=== PATIENT | male | born 1985 | race Caucasian/White ===

== ENCOUNTER 2017-08-19 14:26 | Emergency (ER) | payer SELFPAY ==
[2017-08-19 15:48] VITALS: BP 125/74; PULSE 80; RESP 18; TEMP 37.2; O2SAT 99; BMI 21.7
[2017-08-19 16:12] LABS: UTC Influenza A Antigen Negative (Negative); UTC Influenza B Antigen Positive (Negative)
--- NOTE | 2017-08-19 17:10 | HMH.EDUTC ---
[facility] [place]: Flu Disposition: Home, Self-Care Condition on Discharge: Good Instructions: Influenza Additional Instructions: Increase fluids rest Tylenol Motrin as needed for pain or fever Symptoms worsen or do not improve return obese in the ER Follow-up with primary care if no improvement Prescriptions: Oseltamivir Phosphate [Tamiflu 75mg Capsule] 75 mg PO BID #10 cap Time of Disposition: 17:14 Medical Decision Making Vital Signs: 08/19/17 15:48 Temperature 99 F Temperature Source Temporal Artery Scan Pulse Rate [Brachial] 80 Respiratory Rate 18 Blood Pressure [Right Arm] 125/74 Blood Pressure Mean [Right Arm] 91 Blood Pressure Source [Right Arm] Automatic Cuff Blood Pressure Position [Right Arm] Sitting 02 Sat by Pulse Oximetry 99 Oxygen Delivery Method Room Air - Lab Data Lab Results 08/19/17 16:10: Influenza Type A Ag Negative, Influenza Type B Ag Positive A - Mike Inquiry Pt receiving controlled substance: No [facility] [place] General Chief complaint: Urgent [facility] Stated complaint: flu like symptoms Time Seen by Provider: 08/19/17 17:10 Mode of Arrival: Ambulatory Source of Information: Patient, Medical Record Limitations: No Limitations Description of Symptoms (Recalled from Triage Doc. by RN): BODY ACHES, TIRED, NAUSEATED, STUFFY NOSE. HIS GF HAD BOTH FLU A AND FLU B HEENT Symptoms (Recalled from RN notes): Yes Resp Symptoms (Recalled from RN notes): Yes Skin Symptoms (Recalled from RN notes): No MS Symptoms (Recalled from RN notes): No Functional Status (Recalled from RN notes): NA - History of Present Illness Provider Complaint: 32-year-old male presents for body aches, chills, nausea, nasal congestion and feeling bad this started yesterday - Related Data Previous Rx's Medication Instructions Recorded Oseltamivir Phosphate [Tamiflu 75 mg PO BID #10 cap 08/19/17 75mg Capsule] Allergies Allergy/AdvReac Type Severity Reaction Status Date / Time No Known Allergies Allergy Verified 08/19/17 15:55 - Worker's Comp Is this a Worker's Comp case?: No [facility] History I have reviewed the patient's past medical history: Yes - *Social History Alcohol Intake: never - Psychiatric History Expresses thoughts of harming self/others: None Suicide Plan Description: No Plan ROS Obtained: Yes All systems reviewed & no additional complaints - Constitutional Constitutional: Reports system reviewed and no additional complaints, except as docu, Reports body ache, Reports chills, Reports fatigue, Reports fever(s) - Eyes Eyes: Reports system reviewed and no additional complaints, except as docu - ENT Ears, Nose, Mouth, and Throat: Reports system reviewed and no additional complaints, except as docu - Cardiovascular Cardiovascular: Reports system reviewed and no additional complaints, except as docu - Respiratory Respiratory: Yes system reviewed and no additional complaints, except as docu, Yes as per HPI, Yes chest congestion, Yes cough - Gastrointestinal Gastrointestingal: Reports: system reviewed and no additional complaints, except as docu - Musculoskeletal Musculoskeletal: Reports system reviewed and no additional complaints, except as docu - Integumentary/Breasts Skin/Breast: Reports system reviewed and no additional complaints, except as docu - Neurologic Neurologic: Reports system reviewed and no additional complaints, except as docu - Endocrine Endocrine: Reports system reviewed and no additional complaints, except as docu - Hematologic/Lymphatic Henatologic/Lymphatic: Reports system reviewed and no additional complaints, except as docu - Allergic/Immunologic Allergic/Immunologic: Reports system reviewed and no additional complaints, except as docu Physical Exam - General General appearance: alert, in no apparent distress - Head Head exam: atraumatic - Eye Eye exam: Present: normal appearance, PERRL
--- NOTE | 2017-08-19 17:13 | ED_ITS ---
[facility] [place] Clinical Impression: Flu Disposition: Home, Self-Care Condition on Discharge: Good Instructions: Influenza Additional Instructions: Increase fluids rest Tylenol Motrin as needed for pain or fever Symptoms worsen or do not improve return obese in the ER Follow-up with primary care if no improvement Prescriptions: Oseltamivir Phosphate [Tamiflu 75mg Capsule] 75 mg PO BID #10 cap Time of Disposition: 17:14 Medical Decision Making Vital Signs: 08/19/17 15:48 Temperature 99 F Temperature Source Temporal Artery Scan Pulse Rate [Brachial] 80 Respiratory Rate 18 Blood Pressure [Right Arm] 125/74 Blood Pressure Mean [Right Arm] 91 Blood Pressure Source [Right Arm] Automatic Cuff Blood Pressure Position [Right Arm] Sitting 02 Sat by Pulse Oximetry 99 Oxygen Delivery Method Room Air - Lab Data Lab Results 08/19/17 16:10: Influenza Type A Ag Negative, Influenza Type B Ag Positive A - Mike Inquiry Pt receiving controlled substance: No [facility] [place] - General Chief complaint: Urgent Treatment Center Stated complaint: flu like symptoms Time Seen by Provider: 08/19/17 17:10 Mode of Arrival: Ambulatory Source of Information: Patient, Medical Record Limitations: No Limitations Description of Symptoms (Recalled from Triage Doc. by RN): BODY ACHES, TIRED, NAUSEATED, STUFFY NOSE. HIS GF HAD BOTH FLU A AND FLU B HEENT Symptoms (Recalled from RN notes): Yes Resp Symptoms (Recalled from RN notes): Yes Skin Symptoms (Recalled from RN notes): No MS Symptoms (Recalled from RN notes): No Functional Status (Recalled from RN notes): NA - History of Present Illness Provider Complaint: 32-year-old male presents for body aches, chills, nausea, nasal congestion and feeling bad this started yesterday - Related Data Previous Rx's Medication Instructions Recorded Oseltamivir Phosphate [Tamiflu 75 mg PO BID #10 cap 08/19/17 75mg Capsule] Allergies Allergy/AdvReac Type Severity Reaction Status Date / Time No Known Allergies Allergy Verified 08/19/17 15:55 - Worker's Comp Is this a Worker's Comp case?: No [facility] History I have reviewed the patient's past medical history: Yes - *Social History Alcohol Intake: never - Psychiatric History Expresses thoughts of harming self/others: None Suicide Plan Description: No Plan ROS Obtained: Yes All systems reviewed & no additional complaints - Constitutional Constitutional: Reports system reviewed and no additional complaints, except as docu, Reports body ache, Reports chills, Reports fatigue, Reports fever(s) - Eyes Eyes: Reports system reviewed and no additional complaints, except as docu - ENT Ears, Nose, Mouth, and Throat: Reports system reviewed and no additional complaints, except as docu - Cardiovascular Cardiovascular: Reports system reviewed and no additional complaints, except as docu - Respiratory Respiratory: Yes system reviewed and no additional complaints, except as docu, Yes as per HPI, Yes chest congestion, Yes cough - Gastrointestinal Gastrointestingal: Reports: system reviewed and no additional complaints, except as docu - Musculoskeletal Musculoskeletal: Reports system reviewed and no additional complaints, except as docu - Integumentary/Breasts Skin/Breast: Reports sys
== END 2017-08-19 17:18 | disposition home or self-care (01) ==
PROVIDERS: Emergency Provider Nurse Practitioner Family
DX: J11.1 Influenza due to unidentified influenza virus with other respiratory manifestations (principal)
CPT/HCPCS: 87804; 99201

== ENCOUNTER 2020-08-14 17:52 | Emergency (ER) | payer OTHER, SELFPAY ==
[2020-08-14 17:55] VITALS: BP 134/91; PULSE 83; RESP 19; TEMP 36.8; O2SAT 98; BMI 20.9
[2020-08-14 18:17] VITALS: BP 134/91; PULSE 83; RESP 19; TEMP 36.8; O2SAT 98
--- NOTE | 2020-08-14 18:19 | HMH.EDUTC ---
[facility] [place] Clinical Impression: Encounter for laboratory testing for COVID-19 virus Disposition: Home, Self-Care Condition on Discharge: Good Instructions: DI for COVID-19 (Suspected or Confirmed ), Coronavirus Disease 2019, Preventing the Spread of Coronavirus Discharge Instructions Additional Instructions: *Monitor Temp, Over the counter Motrin or Tylenol as directed/as needed Tylenol every 4 hours and Motrin every 6 hours (as long as your family doctor has told you that you can take it) for fever or pain. and straight to ER if unable to lower temp less than 101.0 after medication given *Warm salt water gargles may help to soothe the throat *Throat Lozenges *Warm fluids like tea with honey may help to soothe the throat *Sleep elevated *Humidifier/Vaporizer Follow up IMMEDIATELY for new or worsening symptoms or no Noticeable improvement over the next 48-72 hours. 911 for difficulty breathing or swallowing You were tested for today for COVID19 your test result should be back in the next 24-48 hours, you may call to the [facility] to see if your test results are back in the next 48 hours [phone] [facility] hours are 9am-9pm You was given a handout with instructions for Self Quarantine and Self isolation for while you wait on test results and what to do if they are positive If you are positive the Health Dept will be contacting you also Referrals: PCP,No [Primary Care Provider] - As needed Forms: Work/School Release Time of Disposition: 18:22 Medical Decision Making - Mike Inquiry Pt receiving controlled substance: No Mike was queried for this patient: No Vital Signs: 08/14/20 17:55 08/14/20 18:17 Temperature 98.2 F 98.2 F Temperature Source Oral Pulse Rate 83 Pulse Rate [Right Brachial] 83 Respiratory Rate 19 19 Blood Pressure 134/91 H Blood Pressure [Right Arm] 134/91 H Blood Pressure Mean [Right Arm] 105 Blood Pressure Source [Right Arm] Automatic Cuff Blood Pressure Position [Right Arm] Sitting 02 Sat by Pulse Oximetry 98 Oxygen Delivery Method Room Air Orders (Tests/Meds): ORDERS Category Date Time Status Covid-19 Nasal PCR ([facility]) Routine Lab 08/14/20 18:00 Received [facility] [place] - General Stated complaint: covid test Time Seen by Provider: 08/14/20 18:19 Mode of Arrival: Ambulatory Source of Information: Patient Limitations: No Limitations Description of Symptoms (Recalled from Triage Doc. by RN): COVID TEST D/T EXPOSURE. C/O BODY ACHES HEENT Symptoms (Recalled from RN notes): No Resp Symptoms (Recalled from RN notes): No Skin Symptoms (Recalled from RN notes): No MS Symptoms (Recalled from RN notes): No Functional Status (Recalled from RN notes): WNL - History of Present Illness Provider Complaint: Patient states that mother recently had COVID but he has not been around her but has other family members that was States that for about a week he has been having body aches and chills so he wanted to get tested Denies known fever - Related Data Previous Rx's Medication Instructions Recorded Oseltamivir Phosphate [Tamiflu 75 mg PO BID #10 cap 08/19/17 75mg Capsule] Allergies Allergy/AdvReac Type Severity Reaction Status Date / Time No Known Allergies Allergy Verified 08/19/17 15:55 - Worker's Comp Is this a Worker's Comp case?: No [facility] History - Hepatitis A Screen Drug use history?: No High risk sexual behaviors?: No History of sexually transmitted infection?: No Currently employed?: No Childcare worker?: No Do you have indoor plumbing?: Yes Do you have electricity?: Yes Attestation statement:: This patient has been screened for Hepatitis A risk factors. I have reviewed the patient's past medical history: Yes - Social History Alcohol Intake: never ROS Obtained: Yes All systems reviewed & no additional complaints, Yes Systems reviewed as appropriate & no additional complaints - Constitutional Constitutional: Reports system reviewed and no
== END 2020-08-14 18:25 | disposition home or self-care (01) ==
PROVIDERS: Emergency Provider Nurse Practitioner
DX: Z20.822 Contact with and (suspected) exposure to COVID-19 (principal)
CPT/HCPCS: 99202; G0463; U0003

== ENCOUNTER 2021-04-13 08:14 | Emergency (ER) | payer OTHER, SELFPAY ==
[2021-04-13 08:16] VITALS: BP 145/88; PULSE 75; RESP 16; TEMP 36.8; O2SAT 100; BMI 27.3
--- NOTE | 2021-04-13 08:58 | HMH.EDGENADL ---
ED Disposition Clinical Impression: Limb ataxia Disposition: Home, Self-Care Condition on Discharge: Fair Additional Instructions: Be very careful when you walk, and walk with assistance, so that she did not fall. Follow-up with neurology, Dr. Gerard. 04/17/2021 at 3 PM. Return to the emergency department if your symptoms worsen or if you develop new symptoms such as difficulty with vision, speech, swallowing, or breathing. You are being provided with a list of physicians available for follow-up of your condition. Please call a physician on this list to arrange a follow-up appointment as soon as possible. Referrals: Provider,MD Omi [Primary Care Provider] - Tawny Gerard MD [Staff Physician] - - Critical Care Critical Care Time: No Attestation: On 04/13/21, the high probability of a clinically significant, sudden or life threatening deterioration of the following system(s) required my full and direct attention, intervention and personal management. The time I documented below is in addition to time spent performing reported procedures but includes the following listed in this critical care notation. Medical Decision Making - Mike Inquiry Pt receiving controlled substance: No Vital Signs: 04/13/21 08:16 04/13/21 10:00 04/13/21 10:30 Temperature 98.3 F Temperature Source Oral Pulse Rate 61 69 Pulse Rate [Right] 75 Respiratory Rate 16 Blood Pressure 128/86 107/66 L Blood Pressure [Right Arm] 145/88 H Blood Pressure Mean 98 79 Blood Pressure Mean [Right Arm] 107 Blood Pressure Source [Right Arm] Automatic Cuff Blood Pressure Position [Right Arm] Sitting 02 Sat by Pulse Oximetry 100 98 99 Oxygen Delivery Method Room Air 04/13/21 11:00 Temperature Temperature Source Pulse Rate 60 Pulse Rate [Right] Respiratory Rate 18 Blood Pressure 116/76 Blood Pressure [Right Arm] Blood Pressure Mean 89 Blood Pressure Mean [Right Arm] Blood Pressure Source [Right Arm] Blood Pressure Position [Right Arm] 02 Sat by Pulse Oximetry 100 Oxygen Delivery Method - Lab Data Lab Results 04/13/21 09:07: Urine Color Yellow, Urine Appearance Clear, Urine pH 5.5, Ur Specific [place] 1.025, Urine Protein Negative, Urine Glucose (UA) Negative, Urine Ketones Negative, Urine Blood 2+, Urine Nitrate Negative, Urine Bilirubin Negative, Urine Urobilinogen 0.2, Ur Leukocyte Esterase Negative, Urine RBC 5-10, Urine WBC 3-5, Ur Squamous Epith Cells 3-5, Urine Bacteria None 04/13/21 09:25: WBC 10.8, RBC 5.88, Hgb 17.0, Hct 53.0 H, MCV 90.2, MCH 28.9, MCHC 32.1, RDW 14.0, Plt Count 329, MPV 8.2, Neut % (Auto) 53.5, Lymph % (Auto) 30.4, [place] % (Auto) 8.0, Eos % (Auto) 6.8, Baso % (Auto) 1.3, Neut # (Auto) 5.8, Lymph # (Auto) 3.3, [place] # (Auto) 0.9, Eos # (Auto) 0.7 H, Baso # (Auto) 0.1 04/13/21 09:25: Sodium 141, Potassium 4.3, Chloride 105, Carbon Dioxide 28, Anion Gap 12.3, BUN 16, Creatinine 1.10, Estimated Creat Clear 105, Estimated GFR 76, Est GFR ( Amer) 92, Glucose 102 H, Calcium 9.2, Magnesium 2.2, Total Bilirubin 0.6, AST 30, ALT 16, Alkaline Phosphatase 73, Total Protein 8.8 H, Albumin 4.6, Globulin 4.2 H, Albumin/Globulin Ratio 1.1 04/13/21 09:25: TSH 2.02, Free T4 Index 3.2 L, Thyroxine (T4) 10.1, T3 Uptake 32 04/13/21 09:25: Urine Opiates Screen Negative, Urine Methadone Screen Negative, Ur Barbituates Screen Negative, Ur Phencyclidine Scrn Negative, Ur Amphetamines Screen Negative, U Benzodiazepines Scrn Negative, Urine Cocaine Screen Negative, U Marijuana (THC) Screen Positive H 04/13/21 09:25: ESR 20 H 04/13/21 09:25: C-Reactive Protein 6.0 H Result diagrams: 04/13/21 09:25 04/13/21 09:25 - CT Data CT Scan: Head Time Received: 10:[address] Reviewed: Yes: I have viewed the radiologist's interpretation Findings Narrative: PROCEDURE: CT HEAD/BRAIN WO CON CLINICAL INDICATION: ataxia of all limbs, sudden onset COMPARISON: No exams were available for comparis
--- NOTE | 2021-04-13 09:11 | CT_ITS ---
PROCEDURE: CT HEAD/BRAIN WO CON CLINICAL INDICATION: ataxia of all limbs, sudden onset COMPARISON: No exams were available for comparison TECHNIQUE: Axial images obtained. All CT scans at the facility use one or more dose reduction, viz: automated exposure control, ma/kV adjustment per patient size (including targeted exams where dose is matched to indication, i.e. head), or iterative reconstruction technique. FINDINGS: No midline shift, mass effect, intracranial hemorrhage, hydrocephalus, or extra-axial fluid collection is evident. The calvarium has an unremarkable appearance. No mastoid effusion. There is mild mucosal thickening of the ethmoid sinuses IMPRESSION: No acute intracranial finding Dictated by: Bobby Krishnamurthy MD 04/13/2021 10:07 Bobby Krishnamurthy MD in [place] 04/13/2021 10:07
[2021-04-13 09:39] LABS: Microscopic, Urine URINE MICROSCOPIC (MICROSCOPIC)
[2021-04-13 09:41] LABS: Basophils # 0.1 K/mm3 (0-0.2); Basophils % 1.3 % (0.1-2.0); Eosinophils # 0.7 K/mm3 (0.0-0.4); Eosinophils % 6.8 % (0.1-12.0); Lymphocytes # 3.3 K/mm3 (0.7-4.5); Lymphocytes % 30.4 % (10-50); Mean Corpuscular HGB Conc 32.1 g/dL (31.8-35.4); Mean Corpuscular Hemoglobin 28.9 pg (27.0-31.2); Mean Corpuscular Volume 90.2 fl (80-94); Mean Platelet Volume 8.2 fl (7.4-10.4); Monocytes # 0.9 K/mm3 (0.1-1.0); Neutrophils # 5.8 K/mm3 (1.8-7.8); Neutrophils % 53.5 % (37.0-80.0); Platelet Count 329 K/mm3 (142-424); Red Blood Count 5.88 M/mm3 (4.60-6.20); White Blood Count 10.8 K/mm3 (4.8-10.8)
[2021-04-13 09:42] LABS: Appearance,Urine CLEAR (Clear); Bilirubin,Urine Negative (Negative); Blood, Urine 2+ (Negative); Color,Urine YELLOW (Yellow); Glucose,Urine (UA) Negative (Negative); Ketones,Urine Negative (Negative); Leukocyte Esterase,Urine Negative (Negative); Nitrate,Urine Negative (Negative); PH,Urine 5.5 (5.0-8.5); Protein,Urine Negative (Negative); Specific Gravity, Urine 1.025 (1.005-1.030); Urobilinogen,Urine 0.2 EU/dl (0.2)
[2021-04-13 09:44] LABS: Chloride 105 mmol/L (98-107); Potassium 4.3 mmoL/L (3.5-5.1); Sodium 141 mmol/L (136-145)
[2021-04-13 09:47] LABS: Alanine Aminotransferase 16 U/L (12-78); Albumin Level 4.6 g/dl (3.5-5.0); Albumin/Globulin Ratio 1.1 (1.1-1.8); Alkaline Phosphatase 73 U/L (38-126); Anion Gap 12.3 mEq/L (5-15); Aspartate Amino Transferase 30 U/L (17-59); Bilirubin,Total 0.6 mg/dl (0.2-1.3); Blood Urea Nitrogen 16 mg/dl (9-20); Calcium 9.2 mg/dl (8.4-10.2); Carbon Dioxide 28 mmol/L (22.0-30.0); Creatinine Clearance Estimated 105 mL/min (50-200); Estimated Glomerular Filt Rate 76 ml/min (>60); GFR (African American) 92 ML/MIN (>60); Globulin 4.2 g/dL (1.3-3.2); Glucose 102 mg/dl (74-100); Total Protein,Serum 8.8 g/dl (6.3-8.2)
[2021-04-13 09:48] LABS: Magnesium 2.2 mg/dl (1.6-2.3)
[2021-04-13 09:53] LABS: Amphetamine/Metha Screen,Urine Negative ng/ml (<1000); Barbiturates Screen,Urine Negative ng/ml (<200)
[2021-04-13 09:54] LABS: Benzodiazepines Screen,Urine Negative ng/ml (<200)
[2021-04-13 09:55] LABS: Cannabinoid Screen,Urine Positive ng/ml (<50); Cocaine Screen,Urine Negative ng/ml (<300)
[2021-04-13 09:56] LABS: Methadone Screen,Urine Negative ng/ml (<300)
[2021-04-13 09:57] LABS: Opiate Screen,Urine Negative ng/ml (<300); Phencyclidine Screen,Urine Negative ng/ml (<25)
[2021-04-13 10:00] VITALS: BP 128/86; PULSE 61; O2SAT 98
[2021-04-13 10:16] LABS: Triiodothryronine (T3) Uptake 32 % (23.5-40.5)
[2021-04-13 10:17] LABS: Free Thyroxine Index 3.2 ug/dL (5.93-13.13); T4 (Thyroxine) 10.1 ug/dl (5.53-11.0)
[2021-04-13 10:30] VITALS: BP 107/66; PULSE 69; O2SAT 99
[2021-04-13 10:31] LABS: Thyroid Stimulating Hormone 2.02 uIU/mL (0.465-4.68)
[2021-04-13 10:45] LABS: Erythrocyte Sedimentation Rate 20 mm/hr (0-15)
[2021-04-13 11:00] VITALS: BP 116/76; PULSE 60; RESP 18; O2SAT 100
--- NOTE | 2021-04-13 11:40 | PC.NURSE ---
MESSAGE LEFT FOR DR PORTILLO TO CALL DR RODAS
--- NOTE | 2021-04-13 13:44 | PC.NURSE ---
DR RODAS SPOKE WITH DR PORTILLO AND HAS AN APPT ON Saturday04/17/21 @ 10 AM
[2021-04-13 13:55] VITALS: BP 114/70; PULSE 70; RESP 16; TEMP 36.8; O2SAT 98
== END 2021-04-13 13:58 | disposition home or self-care (01) ==
PROVIDERS: Emergency Provider Emergency Medicine
DX: R26.0 Ataxic gait (principal); R51.9 Headache, unspecified; F95.2 Tourette's disorder; F12.90 Cannabis use, unspecified, uncomplicated; Z72.89 Other problems related to lifestyle
CPT/HCPCS: 70450; 80053; 80305; 81001; 83735; 84436; 84443; 84479; 85025; 85651; 86140; 99283

== ENCOUNTER → 2021-04-21 08:24 | Outpatient (CLI) | payer OTHER, SELFPAY ==
--- NOTE | 2021-04-21 08:25 | MR_ITS ---
PROCEDURE: MR HEAD/BRAIN WO CON CLINICAL INDICATION: Limb Ataxia COMPARISON: CT CT HEAD/BRAIN WO CON from 04/13/2021 TECHNIQUE: Routine multiplanar multi echo sequences are performed without gadolinium enhancement. FINDINGS: There is a small area of increased T2 signal and slightly restricted diffusion in the posterior aspect the left thalamus and posterior aspect of the posterior horn of the left internal capsule suggesting a small subacute lacunar infarction.. No other areas of restricted diffusion apparent. No midline shift or mass effect. The cerebellopontine angles, cerebellum, and brainstem have an unremarkable appearance. No hydrocephalus. No acute intracranial hemorrhage. The pituitary, optic chiasm, corpus callosum, and craniocervical junction have an unremarkable appearance. No mastoid effusion or sinus air-fluid level. There is mucosal thickening of the maxillary sinuses right greater than left and mild mucosal thickening of the ethmoid sinuses right greater than left. IMPRESSION: Small area of slightly restricted diffusion in the posterior thalamus and posterior horn of the internal capsule on the left which may represent a subacute infarction. Recommend 3 month follow-up without and with contrast to confirm stability. Demyelinating process such as MS is included in the differential diagnosis. Dictated by: Bobby Krishnamurthy MD 04/22/2021 09:56 Bobby Krishnamurthy MD in [facility] 04/22/2021 09:56
== END ==
PROVIDERS: Visit Provider Specialist
DX: R27.0 Ataxia, unspecified (principal)
CPT/HCPCS: 70551

== ENCOUNTER → 2021-04-26 15:12 | Outpatient (CLI) | payer OTHER, SELFPAY ==
--- NOTE | 2021-04-26 15:12 | MR_ITS ---
PROCEDURE: MR CERVICAL SPINE WO CON CLINICAL INDICATION: Limb ataxia (4 Limbs) COMPARISON: No exams were available for comparison TECHNIQUE: Standard multiplanar multiecho sequences are performed without contrast. 3-D MIP and myelographic images are also rendered and reviewed FINDINGS: There is normal alignment. Craniocervical junction has an unremarkable appearance. There is slight decrease in the disc space at C6-C7 which may indicate early degenerative disc disease. No disc herniation canal stenosis or foraminal stenosis. Spinal cord has an unremarkable appearance. IMPRESSION: No acute finding. Minimal degenerative disc disease C6-C7. Dictated by: Bobby Krishnamurthy MD 04/27/2021 07:33 Bobby Krishnamurthy MD in [facility] 04/27/2021 07:33
--- NOTE | 2021-04-26 15:12 | MR_ITS ---
PROCEDURE: MR THORACIC SPINE WO CON CLINICAL INDICATION: Limb Ataxia COMPARISON: MR MR CERVICAL SPINE WO CON from 04/26/2021 TECHNIQUE: Routine multiplanar multi echo sequences are performed without gadolinium enhancement. FINDINGS: There is normal alignment. No fracture or dislocation. No disc herniation. The disc spaces are well preserved. The spinal cord has unremarkable appearance. No abnormal signal intensity or intra or extradural masses. IMPRESSION: Negative MRI of the thoracic spine Dictated by: Bobby Krishnamurthy MD 04/27/2021 07:42 Bobby Krishnamurthy MD in [facility] 04/27/2021 07:42
== END ==
PROVIDERS: PCP Emergency Medicine; Visit Provider Specialist
DX: R27.0 Ataxia, unspecified (principal)
CPT/HCPCS: 72141; 72146; 76376

== ENCOUNTER → 2021-05-10 11:06 | Outpatient (CLI) | payer OTHER, SELFPAY ==
[2021-05-10 11:42] LABS: Basophils # 0.1 K/mm3 (0-0.2); Basophils % 0.6 % (0.1-2.0); Eosinophils # 0.6 K/mm3 (0.0-0.4); Eosinophils % 4.6 % (0.1-12.0); Hematocrit 51.4 % (42.0-52.0); Hemoglobin 16.9 g/dL (14.1-18.0); Lymphocytes # 2.6 K/mm3 (0.7-4.5); Lymphocytes % 21.6 % (10-50); Mean Corpuscular HGB Conc 32.9 g/dL (31.8-35.4); Mean Corpuscular Hemoglobin 29.5 pg (27.0-31.2); Mean Corpuscular Volume 89.8 fl (80-94); Mean Platelet Volume 7.3 fl (7.4-10.4); Monocytes # 0.8 K/mm3 (0.1-1.0); Monocytes % 6.3 % (1.7-9.3); Neutrophils # 8.1 K/mm3 (1.8-7.8); Neutrophils % 66.9 % (37.0-80.0); Platelet Count 260 K/mm3 (142-424); Red Blood Count 5.72 M/mm3 (4.60-6.20); Red Cell Distribution Width 12.9 % (11.5-17.5); White Blood Count 12.2 K/mm3 (4.8-10.8)
[2021-05-10 12:36] LABS: Erythrocyte Sedimentation Rate 3 mm/hr (0-15)
[2021-05-10 12:49] LABS: Alanine Aminotransferase 11 U/L (12-78); Albumin Level 4.8 g/dl (3.5-5.0); Albumin/Globulin Ratio 1.3 (1.1-1.8); Alkaline Phosphatase 67 U/L (38-126); Anion Gap 11.8 mEq/L (5-15); Aspartate Amino Transferase 29 U/L (17-59); Bilirubin,Total 0.4 mg/dl (0.2-1.3); Blood Urea Nitrogen 16 mg/dl (9-20); Carbon Dioxide 30 mmol/L (22.0-30.0); Chloride 103 mmol/L (98-107); Estimated Glomerular Filt Rate 96 ml/min (>60); GFR (African American) 116 ML/MIN (>60); Globulin 3.6 g/dL (1.3-3.2); Glucose 89 mg/dl (74-100); Potassium 4.8 mmoL/L (3.5-5.1); Sodium 140 mmol/L (136-145); Total Protein,Serum 8.4 g/dl (6.3-8.2)
[2021-05-10 13:19] LABS: Thyroid Stimulating Hormone 1.47 uIU/mL (0.465-4.68)
[2021-05-10 13:54] LABS: Vitamin B12 838 pg/mL (239-931)
[2021-05-10 14:08] LABS: Folate 5.45 ng/mL
[2021-07-18 23:22] LABS: Antinuclear Antibodies (ANA) NEGATIVE
== END ==
PROVIDERS: Visit Provider Specialist
DX: R27.0 Ataxia, unspecified (principal); R90.89 Other abnormal findings on diagnostic imaging of central nervous system
CPT/HCPCS: 36415; 80053; 82390; 82607; 82746; 84443; 85025; 85651; 86038; 86225; 86235; 86618